=== PATIENT | male | born 1945 | race Caucasian/White ===

== ENCOUNTER 2017-10-17 12:18 | Emergency (ER) | payer MEDICARE ==
[2017-10-17] MEDS ORDERED: NACL 0.9% 1000 ML 1,000 ML IV ONE (12:41)
[2017-10-17] MEDS ORDERED: SUBLIMAZE IV ONE (12:41)
[2017-10-17] MEDS ORDERED: BOOSTRIX IM ONE (12:42)
[2017-10-17] MEDS ORDERED: ZOFRAN IV ONE (12:47)
--- NOTE | 2017-10-17 13:34 | Cat Scan Report ---
CT HEAD WITHOUT CONTRAST: HISTORY: Headache, facial trauma. TECHNIQUE: Sequential 2.5mm CT images. COMPARISON: none. FINDINGS: Cerebral Parenchyma: Within normal limits. Cerebellum: Within normal limits. Brainstem: Within normal limits. Ventricles: Normal. Sella: Normal. Extra-axial spaces: Normal. Basal Cisterns: Normal. Intracranial Hemorrhage: None. Midline Shift: None. IMPRESSION: Cranial CT scan within normal limits.
[2017-10-17 13:37] LABS: Basophils % (Auto) 0.3 % (0.0-1.8); Eosinophils % (Auto) 0.5 % (0.0-4.3); Hemoglobin 14.5 gm/dl (11.8-15.2); Lymphocytes # (Auto) 0.7 K/mm3 (1.2-5.4); Lymphocytes % (Auto) 7.4 % (13.4-35.0); Mean Corpuscular HGB Conc 34 % (32-34); Mean Corpuscular Hemoglobin 30 pg (28-32); Mean Corpuscular Volume 88 fl (84-94); Monocytes # (Auto) 0.5 K/mm3 (0.0-0.8); Monocytes % (Auto) 4.8 % (0.0-7.3); Platelet Count 154 K/mm3 (140-440); Red Blood Count 4.89 M/mm3 (3.65-5.03); Red Cell Distribution Width 14.2 % (13.2-15.2)
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
--- NOTE | 2017-10-17 13:41 | Cat Scan Report ---
CT SCAN OF THE CERVICAL SPINE: HISTORY: Facial trauma, neck pain. TECHNIQUE: Contiguous 1.25 mm axial images of the cervical spine were obtained. Sagittal and coronal reformatted images. FINDINGS: There is normal alignment of the cervical spine. The body, pedicles and posterior ligaments are intact. No evidence of fracture or subluxation is seen. There is moderate to severe multilevel degenerative disc disease and facet arthropathy. The spinal canal appears normal. The prevertebral soft tissues appear normal. IMPRESSION: Multilevel cervical spondylosis. No acute process is noted.
[2017-10-17 13:42] LABS: BUN/Creatinine Ratio 15; Blood Urea Nitrogen 15 mg/dL (9-20); Hemolysis Index 14
[2017-10-17 13:49] LABS: INR 1.03 (0.87-1.13)
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
[2017-10-17 15:42] VITALS: BP 146/78
== END 2017-10-17 16:09 | disposition other institution (70) ==
LOC: ED 12:18
DX: S02.611A Fracture of condylar process of right mandible, initial encounter for closed fracture (principal); S02.40CA Maxillary fracture, right side, initial encounter for closed fracture; S02.80XA Fracture of other specified skull and facial bones, unspecified side, initial encounter for closed fracture; G44.319 Acute post-traumatic headache, not intractable; X58.XXXA Exposure to other specified factors, initial encounter
CPT/HCPCS: 36415; 70450; 70486; 72125; 80048; 83880; 85025; 85610; 85730; 96361; 96374; 96375; 99284; G0480; J2405; J3010; J7030; 80320